=== PATIENT | female | born 1955 | race Hispanic/Latino ===

== ENCOUNTER 2018-04-20 13:42 | Emergency (ER) | payer BC ==
--- NOTE | 2018-04-20 14:40 | RAD REPORT ---
EXAM DESCRIPTION: Akash Single View04/20/2018 2:32 pm CLINICAL HISTORY: Cough COMPARISON: none FINDINGS: The lungs appear clear of acute infiltrate. The heart is normal size IMPRESSION: No acute abnormalities displayed
[2018-04-20 14:52] LABS: Absolute Lymphocytes (CBC) 0.7 K/uL (0.7-4.9); Absolute Neutrophil 9.5 K/uL (1.8-8.0); Basophils % 0.7 % (0-1.3); Eosinophils % 0.7 % (0-4.4); Hematocrit 38.6 % (36.0-45.0); Lymphocytes % 5.8 % (15.3-44.8); MCH 31.2 pg (27.0-35.0); MCV 90.6 fL (80-100); MPV 8.7 fL (7.6-11.3); Monocytes % 9.2 % (3.3-12.3); RBC Red Blood Cell Count 4.26 M/uL (3.86-4.86)
[2018-04-20 14:53] LABS: Protime INR 1.15
[2018-04-20 15:17] LABS: ALT/SGPT 29 U/L (12-78); AST/SGOT 24 U/L (15-37); Alkaline Phosphatase 53 U/L (45-117); BUN Blood Urea Nitrogen 13 mg/dL (7-18); Bicarbonate 27 mmol/L (21-32); Bilirubin Direct 0.2 mg/dL (0-0.2); Bilirubin Total 0.5 mg/dL (0.2-1.0); Glucose Level 100 mg/dL (74-106); NT PRO-BNP 171 pg/mL (<125); Potassium 3.7 mmol/L (3.5-5.1); Protein, Total 7.2 g/dL (6.4-8.2); Sodium Level 141 mmol/L (136-145); Troponin (Emerg Dept Use Only) < 0.02 ng/mL (0.0-0.045)
[2018-04-20] MEDS ORDERED: HYDROCODONE/CHLORPHEN 5 ML/OSYR ONE (15:20)
[2018-04-20] MEDS ORDERED: ALBUTEROL 2.5 MG/3 ML NEB SOL ONE (15:20)
[2018-04-20] MEDS ORDERED: IPRATROPIUM BROM 0.5MG/2.5ML ONE (15:20)
[2018-04-20] MEDS ORDERED: FAMOTIDINE 20 MG TAB ONE (15:21)
[2018-04-20] MEDS ORDERED: CEFTRIAXONE/SWI 1gm 1 GM/10 ML SYR ONE (15:21)
[2018-04-20] MEDS ORDERED: predniSONE 20 MG TAB ONE (15:21)
--- NOTE | 2018-04-20 16:11 | ER ---
Nurse's Notes [facility] Name: Merry Henderson Age: 63 yrs Sex: Female : 1955 Arrival Date: 04/20/2018 Time: 13:43 Bed 18 Private MD: Diagnosis: Bronchitis, not specified as acute or chronic;Acute sinusitis Presentation: 04/20 13:58 Presenting complaint: Patient states: coughing since yesterday with mid substernal em pain, with "dark green stuff," with sinus drainage, denies fever. Transition of care: patient was not received from another setting of care. Onset of symptoms was April 19, 2018. Risk Assessment: Do you want to hurt yourself or someone else? Patient reports no desire to harm self or others. Initial Sepsis Screen: Does the patient meet any 2 criteria? No. Patient's initial sepsis screen is negative. Does the patient have a suspected source of infection? No. Patient's initial sepsis screen is negative. Care prior to arrival: None. 13:58 Method Of Arrival: Ambulatory em 13:58 Acuity: KRYSTYNA 3 ss Triage Assessment: 14:02 General: Appears in no apparent distress. comfortable, Behavior is calm, cooperative. em Pain: Complains of pain in mid-sternal area. Cardiovascular: Reports chest pain, Denies shortness of breath, Capillary refill < 3 seconds Patient's skin is warm and dry. Respiratory: Airway is patent Respiratory effort is even, unlabored, Respiratory pattern is regular, symmetrical, Breath sounds are clear bilaterally. Historical: - Allergies: 14:02 No Known Allergies; em - PMHx: 14:02 Hyperlipidemia; em - PSHx: 14:02 ; em - Immunization history:: Adult Immunizations up to date. - Social history:: Smoking status: Patient/guardian denies using tobacco. - Ebola Screening: : Patient negative for fever greater than or equal to 101.5 degrees Fahrenheit, and additional compatible Ebola Virus Disease symptoms Patient denies exposure to infectious person Patient denies travel to an Ebola-affected area in the 21 days before illness onset No symptoms or risks identified at this time. Screenin:05 Abuse screen: Denies threats or abuse. Nutritional screening: No deficits noted. em Tuberculosis screening: No symptoms or risk factors identified. Fall Risk None identified. Assessment: 14:05 General: Appears in no apparent distress. comfortable, Behavior is calm, cooperative. em Pain: Complains of pain in mid-sternal area Pain does not radiate. Pain began 1 day ago. Neuro: Level of Consciousness is awake, alert, obeys commands, Oriented to person, place, time, situation. Cardiovascular: Capillary refill < 3 seconds Patient's skin is warm and dry. Respiratory: Reports cough that is productive, pain with cough pain with movement Airway is patent Respiratory effort is even, unlabored, Respiratory pattern is regular, symmetrical, Sputum is green Breath sounds are clear bilaterally. Onset: The symptoms/episode began/occurred yesterday. GI: No signs and/or symptoms were reported involving the gastrointestinal system. : No signs and/or symptoms were reported regarding the genitourinary system. EENT: EENT: c/o right ear pain, heard "a pop". Derm: Skin is intact, Skin is pink, warm \\T\\ dry. Musculoskeletal: Range of motion: intact in all extremities. 14:15 Reassessment: The previous assessment is accurate, call light remains within reach. ss 15:15 Reassessment: Patient appears in no apparent distress at this time. Patient and/or em family updated on plan of care and expected duration. Pain level reassessed. Patient is alert, oriented x 3, equal unlabored respirations, skin warm/dry/pink. 16:24 Reassessment: Patient appears in no apparent distress at this time. Patient and/or em family updated on plan of care and expected duration. Pain level reassessed. Patient is alert, oriented x 3, equal unlabored respirations, skin warm/dry/pink. rates pain 7/10 Patient states feeling better. Patient states symptoms have improved. Vital Signs: 14:02 BP 150 / 78; Pulse 84; Resp 18; Pulse Ox 95% on R/A; Weight 78.02 kg; Height 5 ft. 3 em in. (160.02 cm); Pain 9/10; 14:05 Temp 99.1(O); em 15:00 BP 138 / 71; Pulse 80; Resp 18; Pulse Ox 99% on R/A; em 16:02 BP 164 / 74; Pulse 97; Resp 18; Pulse Ox 98% on R/A; em 16:44 BP 146 / 67; Pulse 101; Resp 19; Pulse Ox 97% on R/A; Pain 7/10; em 14:02 Body Mass Index 30.47 (78.02 kg, 160.02 cm) em ED Course: 13:43 Patient arrived in ED. tw3 13:55 Kate Vazquez FNP-C [facility]. snw 13:55 Shahzad Gutierres MD is Attending Physician. snw 13:58 Robert Hodge LVN is Primary Nurse. em 14:02 Arm band placed on. em 14:03 EKG done, by seed technician. reviewed by Shahzad Gutierres MD. at1 14:03 Patient maintains SpO2 saturation greater than 95% on room air. em 14:03 Patient has correct armband on for positive identification. Pulse ox on. NIBP on. em 14:28 X-ray completed. Portable x-ray completed in exam room. Patient tolerated procedure ag1 well. 14:30 XRAY Chest (1 view) In Process Unspecified. EDMS 14:31 Triage completed. ss 14:40 Initial lab(s) drawn, by me, sent to lab. Inserted saline lock: 20 gauge in left em1 antecubital area, using aseptic technique. Blood collected. 16:21 No provider procedures requiring assistance completed. IV discontinued, intact, em bleeding controlled, No redness/swelling at site. Pressure dressing applied. Administered Medications: 15:02 CANCELLED (route change): Rocephin (cefTRIAXone) 1 grams IM once snw 15:20 Drug: Albuterol - atroVENT (3:1) (2.5 mg - 0.5 mg) 3 ml Route: Nebulizer; em 16:17 Follow up: Response: No adverse reaction; Marked relief of symptoms em 15:20 Drug: Tussionex Pennkinetic ER 5 ml Route: PO; em 16:17 Follow up: Response: No adverse reaction; Pain is decreased em 15:20 Drug: predniSONE 40 mg Route: PO; em 16:17 Follow up: Response: No adverse reaction em 15:20 Drug: Pepcid 20 mg Route: PO; em 16:17 Follow up: Response: No adverse reaction em 15:28 Drug: Rocephin 1 grams Route: IV; Rate: calculated rate; Site: left antecubital; ss 16:16 Follow up: Response: No adverse reaction; IV Status: Completed infusion; IV Intake: 10mlem Intake: 16:16 IV: 10ml; Total: 10ml. em Outcome: 16:10 Discharge ordered by . snw 16:44 Discharged to home ambulatory, with family. em 16:44 Condition: good 16:44 Discharge instructions given to patient, Instructed on discharge instructions, follow up and referral plans. medication usage, Demonstrated understanding of instructions, follow-up care, medications, Prescriptions given X 3. 16:46 Patient left the ED. em Signatures: Dispatcher [employer] EDMS Kate Vazquez, FACTORY HELPER-C FACTORY HELPER-Csnw Robert Hodge, THEATRE DIRECTOR THEATRE DIRECTOR em Haris Hunter em1 Donna Murillo, MIKE RN ss Shae Jj, towing pilot EKG Tat1 Avani Celeste ag1 Johanna Manning tw3
--- NOTE | 2018-04-20 16:11 | EDPHYS ---
Physician Documentation [facility] Name: Merry Henderson Age: 63 yrs Sex: Female : 1955 Arrival Date: 04/20/2018 Time: 13:43 Bed 18 Private MD: ED Physician Shahzad Gutierres HPI: 04/20 15:44 This 63 yrs old Female presents to ER via Ambulatory with complaints of Chest snw Pain. 15:44 Onset: The symptoms/episode began/occurred gradually, 4 day(s) ago, and became snw persistent. Associated signs and symptoms: Pertinent positives: cough, earache, shortness of breath, sore throat. Modifying factors: The patient symptoms are alleviated by nothing. It is unknown whether or not the patient has had similar symptoms in the past. It is unknown whether or not the patient has recently seen a physician. Historical: - Allergies: 14:02 No Known Allergies; em - PMHx: 14:02 Hyperlipidemia; em - PSHx: 14:02 ; em - Immunization history:: Adult Immunizations up to date. - Social history:: Smoking status: Patient/guardian denies using tobacco. - Ebola Screening: : Patient negative for fever greater than or equal to 101.5 degrees Fahrenheit, and additional compatible Ebola Virus Disease symptoms Patient denies exposure to infectious person Patient denies travel to an Ebola-affected area in the 21 days before illness onset No symptoms or risks identified at this time. ROS: 15:41 Eyes: Negative for injury, pain, redness, and discharge. snw 15:41 Neck: Negative for injury, pain, and swelling, Cardiovascular: Negative for chest pain, palpitations, and edema, Abdomen/GI: Negative for abdominal pain, nausea, vomiting, diarrhea, and constipation, Back: Negative for injury and pain, : Negative for injury, bleeding, discharge, and swelling, MS/Extremity: Negative for injury and deformity, Skin: Negative for injury, rash, and discoloration, Neuro: Negative for headache, weakness, numbness, tingling, and seizure. 15:41 Constitutional: Positive for malaise. 15:41 ENT: Positive for nasal discharge, sinus congestion, sinus pain. 15:41 Respiratory: Positive for cough. Exam: 15:41 Constitutional: This is a well developed, well nourished patient who is awake, alert, snw and in no acute distress. Eyes: Pupils equal round and reactive to light, extra-ocular motions intact. Lids and lashes normal. Conjunctiva and sclera are non-icteric and not injected. Cornea within normal limits. Periorbital areas with no swelling, redness, or edema. Neck: Trachea midline, no thyromegaly or masses palpated, and no cervical lymphadenopathy. Supple, full range of motion without nuchal rigidity, or vertebral point tenderness. No Meningismus. Chest/axilla: Normal chest wall appearance and motion. Nontender with no deformity. No lesions are appreciated. Cardiovascular: Regular rate and rhythm with a normal S1 and S2. No gallops, murmurs, or rubs. Normal PMI, no JVD. No pulse deficits. Respiratory: Lungs have equal breath sounds bilaterally, clear to auscultation and percussion. No rales, rhonchi or wheezes noted. No increased work of breathing, no retractions or nasal flaring. Abdomen/GI: Soft, non-tender, with normal bowel sounds. No distension or tympany. No guarding or rebound. No evidence of tenderness throughout. Back: No spinal tenderness. No costovertebral tenderness. Full range of motion. Skin: Warm, dry with normal turgor. Normal color with no rashes, no lesions, and no evidence of cellulitis. MS/ Extremity: Pulses equal, no cyanosis. Neurovascular intact. Full, normal range of motion. Neuro: Awake and alert, GCS 15, oriented to person, place, time, and situation. Cranial nerves II-XII grossly intact. Motor strength 5/5 in all extremities. Sensory grossly intact. Cerebellar exam normal. Normal gait. Psych: Awake, alert, with orientation to person, place and time. Behavior, mood, and affect are within normal limits. 15:41 Head/face: Noted is swelling, that is mild, of the nose, Sinus tenderness, that is moderate, is located over the right frontal sinus, left frontal sinus, right ethmoid sinus and left ethmoid sinus. 15:41 ENT: TM's: are normal, Nose: Nasal mucosa: edematous, Mouth: is normal, Posterior pharynx: erythema, that is moderate, Voice: is normal. Vital Signs: 14:02 BP 150 / 78; Pulse 84; Resp 18; Pulse Ox 95% on R/A; Weight 78.02 kg; Height 5 ft. 3 em in. (160.02 cm); Pain 9/10; 14:05 Temp 99.1(O); em 15:00 BP 138 / 71; Pulse 80; Resp 18; Pulse Ox 99% on R/A; em 16:02 BP 164 / 74; Pulse 97; Resp 18; Pulse Ox 98% on R/A; em 16:44 BP 146 / 67; Pulse 101; Resp 19; Pulse Ox 97% on R/A; Pain 7/10; em 14:02 Body Mass Index 30.47 (78.02 kg, 160.02 cm) em MDM: 13:57 Patient medically screened. snw 16:11 Data reviewed: vital signs, nurses notes. Data interpreted: Pulse oximetry: on room air snw is 98 %. Interpretation: normal. Counseling: I had a detailed discussion with the patient and/or guardian regarding: the historical points, exam findings, and any diagnostic results supporting the discharge/admit diagnosis, the presence of at least one elevated blood pressure reading (>120/80) during this emergency department visit, lab results, radiology results, the need for outpatient follow up, to return to the emergency department if symptoms worsen or persist or if there are any questions or concerns that arise at home. Special discussion: I have referred the patient to see his PCP for further evaluation of high blood pressure. Based on the history and exam findings, there is no indication for further emergent testing or inpatient evaluation. I discussed with the patient/guardian the need to see the primary care provider for further evaluation of the symptoms. 04/20 13:55 Order name: Basic Metabolic Panel; Complete Time: 15:23 snw 04/20 13:55 Order name: CBC with Diff; Complete Time: 15:01 snw 04/20 13:55 Order name: LFT's; Complete Time: 15:23 snw 04/20 13:55 Order name: Magnesium; Complete Time: 15:23 snw 04/20 13:55 Order name: NT PRO-BNP; Complete Time: 15:23 snw 04/20 13:55 Order name: PT-INR; Complete Time: 15:01 snw 04/20 13:55 Order name: Troponin (emerg Dept Use Only); Complete Time: 15:23 snw 04/20 13:55 Order name: XRAY Chest (1 view); Complete Time: 14:49 snw 04/20 13:55 Order name: EKG; Complete Time: 13:56 snw 04/20 13:55 Order name: Cardiac monitoring; Complete Time: 14:40 snw 04/20 13:55 Order name: EKG - Nurse/Tech; Complete Time: 14:40 snw 04/20 13:55 Order name: IV Saline Lock; Complete Time: 14:40 snw 04/20 13:55 Order name: Labs collected and sent; Complete Time: 14:40 snw 04/20 13:55 Order name: O2 Per Protocol; Complete Time: 14:40 snw 04/20 13:55 Order name: O2 Sat Monitoring; Complete Time: 14:40 snw Administered Medications: 15:02 CANCELLED (route change): Rocephin (cefTRIAXone) 1 grams IM once snw 15:20 Drug: Albuterol - atroVENT (3:1) (2.5 mg - 0.5 mg) 3 ml Route: Nebulizer; em 16:17 Follow up: Response: No adverse reaction; Marked relief of symptoms em 15:20 Drug: Tussionex Pennkinetic ER 5 ml Route: PO; em 16:17 Follow up: Response: No adverse reaction; Pain is decreased em 15:20 Drug: predniSONE 40 mg Route: PO; em 16:17 Follow up: Response: No adverse reaction em 15:20 Drug: Pepcid 20 mg Route: PO; em 16:17 Follow up: Response: No adverse reaction em 15:28 Drug: Rocephin 1 grams Route: IV; Rate: calculated rate; Site: left antecubital; ss 16:16 Follow up: Response: No adverse reaction; IV Status: Completed infusion; IV Intake: 10mlem Disposition: 04/21 06:04 Co-signature as Attending Physician, Shahzad Gutierres MD I agree with the assessment and kdr plan of care. Disposition: 04/20/18 16:10 Discharged to Home. Impression: Bronchitis, not specified as acute or chronic, Acute sinusitis. - Condition is Stable. - Discharge Instructions: Acute Bronchitis, Adult, Hypertension, Sinusitis, Adult. - Prescriptions for Amoxicillin 500 mg Oral Capsule - take 1 capsule by ORAL route every 8 hours for 10 days; 30 tablet. Tessalon Perles 100 mg Oral Capsule - take 1 capsule by ORAL route every 8 hours As needed; 15 capsule. Prednisone 20 mg Oral Tablet - take 2 tablet by ORAL route once daily for 5 days; 10 tablet. - Medication Reconciliation Form, Thank You Letter, Antibiotic Education, Prescription Opioid Use form. - Follow up: Private Physician; When: 2 - 3 days; Reason: Recheck today's complaints, Continuance of care, Re-evaluation by your physician. Follow up: Emergency Department; When: As needed; Reason: Worsening of condition. Signatures: Dispatcher [employer] EDMS Shahzad Gutierres MD MD kdr Kate Vazquez, PROFESSOR OF EARLY CHILDHOOD EDUCATION-C PROFESSOR OF EARLY CHILDHOOD EDUCATION-Csnw Robert Hodge, SIGN OUT CLERK SIGN OUT CLERK em Donna Murillo RN RN ss Corrections: (The following items were deleted from the chart) 04/20 15:02 14:50 Rocephin (cefTRIAXone) 1 grams IM once ordered. snw snw 15:02 15:02 Rocephin (cefTRIAXone) 1 grams IM once ordered. snw snw 16:46 16:10 04/20/2018 16:10 Discharged to Home. Impression: Bronchitis, not specified as em acute or chronic; Acute sinusitis. Condition is Stable. Forms are Medication Reconciliation Form, Thank You Letter, Antibiotic Education, Prescription Opioid Use. Follow up: Private Physician; When: 2 - 3 days; Reason: Recheck today's complaints, Continuance of care, Re-evaluation by your physician. Follow up: Emergency Department; When: As needed; Reason: Worsening of condition. snw
--- NOTE | 2018-04-21 04:18 | EKG ---
Test Date: 2018-04-20 Test Time: 13:54:34 Pulp Press Tender: BOBBY/M MEASUREMENT RESULTS: Intervals: Rate: 83 RI: 130 QRSD: 78 QT: 350 QTc: 411 [place]: P: 15 RI: 130 QRS: 11 T: -6 INTERPRETIVE STATEMENTS: Normal sinus rhythm Normal ECG Compared to ECG 03/24/2006 10:22:09 Sinus bradycardia no longer present Electronically Signed On 04-21-18 04:17:13 CDT by Zan Rosario
== END 2018-04-20 16:46 | disposition home or self-care (01) ==
LOC: ER 13:42
DX: J40 Bronchitis, not specified as acute or chronic (principal); J01.90 Acute sinusitis, unspecified
CPT/HCPCS: 36415; 71045; 80048; 80076; 83735; 83880; 84484; 85025; 85610; 93005; 94640; 96365; 99285; J0696; J7512

== ENCOUNTER 2022-05-02 08:29 | Emergency (ER) | payer OTHER ==
--- OUTSIDE RECORDS SUMMARY | 2022-05-02 08:34 | XMS REPORT | Continuity of Care Document ---
:1955 Author Organization [facility] t Address [address] [place] [address] Care Team Providers Name Role Phone PCP, PATIENT DOES NOT HAVE A Primary Care Physician UnavailELISABETH Romero Attending Clinician Unavailable Elisabeth Paez Attending Clinician Doctor Unassigned, [place] Attending Clinician Unavailable DWIGHT SINGH Attending Clinician Unavailable Dwight Singh MD Attending Clinician AMANDA ROGERS Attending Clinician Unavailable Amanda Rose Attending Clinician RAMIN SPEAR Attending Clinician Unavailable Ramin Phipps Attending Clinician Mayank Phan RN Attending Clinician Unavailable THEODORE REEDER Attending Clinician Unavailable Ramses Kellogg DO Attending Clinician Theodore Reeder DO Attending Clinician SHAHRZAD NEWMAN Attending Clinician Unavailable Jacy Kumar DO Attending Clinician RAMIN SPEAR Admitting Clinician Unavailable THEODORE REEDER Admitting Clinician Unavailable Theodore Reeder DO Admitting Clinician ELISABETH LUJAN Admitting Clinician Unavailable Payers Payer Name Policy Type Policy Number Effective Date Expiration Date [facility] [id number] 2020 [facility] 00:00:00 PPO Problems Condition Condition Condition Status Onset Resolution Last Treating Co mments Source Name Details Category Date Date Treatment Clinician Date Sepsis Sepsis Disease Active Univers 4-21 ity of 00:00: [place] 00 Medical Branch Severe Severe Disease Active Univers sepsis sepsis 4-20 [place]y [place] 00 Medical dysfunctio dysfunctio Br anch n due to n due to Gram Gram negative negative bacteria bacteria UTI UTI Disease Active Univers (urinary (urinary 4-20 ity of tract tract 00:00: [place] infection) infection) 00 In dical Branch E coli E coli Disease Active Univers bacteremia bacteremia 4-20 it y of 00:00: [place] 00 [facility] Branch COVID-19 COVID-19 Disease Active Unive rs 4-20 ity of 00:00: [address] Allergies, Adverse Reactions, Alerts Allergy Allergy Status Severity Reaction(s) Onset Inactive Treating Comm ents Source Name Type Date Date Clinician NO KNOWN Drug Active Univers ALLERGIE Class ity of S [facility] Social History Social Habit Start Date Stop Date Quantity Comments Source Exposure to 2022-03-02 2022-03-12 Not sure [facility] [place] [facility]-CoV-2 00:00:00 15:07:00 [facility] (event) [place] Alcohol intake 2022-03-12 2022-03-12 Ex-drinker [facility] 00:00:00 00:00:00 (finding) [facility] Tobacco use and 2020-10-20 2020-10-20 Smokeless tobacco Un iversity of exposure 00:00:00 00:00:00 non-user [facility] Sex Ass[birth year] Universit y of 00:00:00 00:00:00 [facility] Smoking Status Start Date Stop Date Source Never smoked tobacco [facility] Medications Ordered Filled Start Stop Current Ordering Indication Dosage Frequency Signature Comments Components Source Medication Medication Date Date Medication? Clinician (SIG) Name Name madisyn Yes [id number] 3{tbl} Take 3 Univers r-ritonavir 9-10 tablets by it y of (PAXLOVID, 00:00: mouth in [place] as EUA,) 300 00 the Medical mg (150 mg morning Branch x 2)-100 mg and 3 tablet tablets in the evening. benzonatate Yes [id number] 100mg Take 1 Univers 100 mg 9-10 capsule by ity of capsule 00:00: mouth 3 [place] 00 (three) Medical times Branch daily as needed for Cough. guaifenesin Yes Take by Uni vers /phenylephr 4-23 mouth. ity of ine HCl 12:39: [place] (MUCINEX 58 Medical COLD ORAL) Branch promethazin Yes Univer s e HCl 4-23 ity of (PROMETHAZI 12:39: [place] NE, BULK, 58 Medical MISC) Branch guaifenesin Yes Take by Uni vers /phenylephr 4-23 mouth. ity of ine HCl 12:39: [place] (MUCINEX 58 Medical COLD ORAL) Branch promethazin Yes Univer s e HCl 4-23 ity of (PROMETHAZI 12:39: [place] NE, BULK, 58 Medical MISC) Branch guaifenesin Yes Take by Uni vers /phenylephr 4-23 mouth. ity of ine HCl 12:39: [place] (MUCINEX 58 Medical COLD ORAL) Branch promethazin Yes Univer s e HCl 4-23 ity of (PROMETHAZI 12:39: [place] NE, BULK, 58 Medical MISC) Branch guaifenesin Yes Take by Uni vers /phenylephr 4-23 mouth. ity of ine HCl 12:39: [place] (MUCINEX 58 Medical COLD ORAL) Branch promethazin Yes Univer s e HCl 4-23 ity of (PROMETHAZI 12:39: [place] NE, BULK, 58 Medical MISC) Branch ondansetron Yes [id number] 4mg Take 1 Univers 4 mg tablet 4-23 tablet by ity of 00:00: mouth [place] 00 every 8 Medical (eight) Branch hours as needed for N/V unresponsi ve to Promethazi ne. sulfamethox Yes [id number] 1{tbl} Take 1 Univers azole-trime 4-23 tablet by ity of thoprim 00:00: mouth 2 [place] 800-160 mg 00 (two) Medical per tablet times Branch daily. ondansetron Yes [id number] 4mg Take 1 Univers 4 mg tablet 4-23 tablet by ity of 00:00: mouth [place] 00 every 8 Medical (eight) Branch hours as needed for N/V unresponsi ve to Promethazi ne. sulfamethox 2020-0 Yes [id number] 1{tbl} Take 1 Univers azole-trime 4-23 tablet by ity of thoprim 00:00: mouth 2 [place] 800-160 mg 00 (two) Medical per tablet times Branch daily. ondansetron 2020-0 Yes [id number] 4mg Take 1 Univers 4 mg tablet 4-23 tablet by ity of 00:00: mouth [place] 00 every 8 Medical (eight) Branch hours as needed for N/V unresponsi ve to Promethazi ne. sulfamethox 2020-0 Yes [id number] 1{tbl} Take 1 Univers azole-trime 4-23 tablet by ity of thoprim 00:00: mouth 2 [place] 800-160 mg 00 (two) Medical per tablet times Branch daily. ondansetron 2020-0 Yes [id number] 4mg Take 1 Univers 4 mg tablet 4-23 tablet by ity of 00:00: mouth [place] 00 every 8 Medical (eight) Branch hours as needed for N/V unresponsi ve to Promethazi ne. sulfamethox 2020-0 Yes [id number] 1{tbl} Take 1 Univers azole-trime 4-23 tablet by ity of thoprim 00:00: mouth 2 [place] 800-160 mg 00 (two) Medical per tablet times Branch daily. traMADoL 50 2020-0 Yes [id number] 50mg Take 1 Univ ers mg tablet 1-20 tablet by ity o f 00:00: mouth [place] 00 every 6 Medical (six) Branch hours as needed for Pain (scale 7-10). Indication s: acute pain traMADoL 50 2020-0 Yes [id number] 50mg Take 1 Univ ers mg tablet 1-20 tablet by ity o f 00:00: mouth [place] 00 every 6 Medical (six) Branch hours as needed for Pain (scale 7-10). Indication s: acute pain traMADoL 50 2020-0 Yes [id number] 50mg Take 1 Univ ers mg tablet 1-20 tablet by ity o f 00:00: mouth [place] 00 every 6 Medical (six) Branch hours as needed for Pain (scale 7-10). Indication s: acute pain traMADoL 50 2020-0 Yes [id number] 50mg Take 1 Univ ers mg tablet 1-20 tablet by ity o f 00:00: mouth [place] [id number] every 6 Medical (six) Branch hours as needed for Pain (scale 7-10). Indication s: acute pain Immunizations Ordered Filled Immunization Date Status Comments [facility] e Immunization Name Name SARS-COV-2 COVID-19 2020-08-28 Completed Unive rsity of PFIZER VACCINE 00:00:00 [facility] SARS-COV-2 COVID-19 2020-08-28 Completed Unive rsity of PFIZER VACCINE 00:00:00 [facility] SARS-COV-2 COVID-19 2020-08-28 Completed Unive rsity of PFIZER VACCINE 00:00:00 [facility] SARS-COV-2 COVID-19 2020-08-28 Completed Unive rsity of PFIZER VACCINE 00:00:00 [facility] SARS-COV-2 COVID-19 2020-07-31 Completed Unive rsity of PFIZER VACCINE 00:00:00 [facility] SARS-COV-2 COVID-19 2020-07-31 Completed Unive rsity of PFIZER VACCINE 00:00:00 [facility] SARS-COV-2 COVID-19 2020-07-31 Completed Unive rsity of PFIZER VACCINE 00:00:00 [facility] SARS-COV-2 COVID-19 2020-07-31 Completed Unive rsity of PFIZER VACCINE 00:00:00 [facility] Vital Signs Vital Name Observation Time Observation Value Comments Source Systolic blood 2022-03-12 20:09:00 147 mm[Hg] Univer sity of pressure [facility] Diastolic blood 2022-03-12 20:09:00 81 mm[Hg] Unive rsity of pressure [facility] Heart rate 2022-03-12 20:09:00 70 /min [facility] Body temperature 2022-03-12 20:09:00 37.33 [place] Univ ersity [facility] Respiratory rate 2022-03-12 20:09:00 18 /min Univ ersity of [facility] Body height 2022-03-12 20:09:00 160 cm [facility] Body weight 2022-03-12 20:09:00 82.101 kg [facility] Branch BMI 2022-03-12 20:09:00 32.06 kg/m2 Universi [facility] Oxygen saturation in 2022-03-12 20:09:00 97 /min University of Arterial blood by [facility] Pulse oximetry Branch Systolic blood 2021-07-22 15:22:00 138 mm[Hg] Univer sity of pressure [facility] Diastolic blood 2021-07-22 15:22:00 68 mm[Hg] Unive rsity of pressure [facility] Heart rate 2021-07-22 15:22:00 52 /min Universi [facility] Body height 2021-07-22 15:22:00 160 [facility] 2021-07-22 15:22:00 83.462 [facility] BMI 2021-07-22 15:22:00 32.59 kg/m2 Universi [facility] Oxygen saturation in 2021-07-22 15:22:00 98 /min University of Arterial blood by [facility] Pulse oximetry Branch Procedures Procedure Date / Time Performed Performing Clinician Courtney e COVID-19 (ID NOW 2022-03-12 20:12:00 Karmen Cavanaugh [facility] RAPID TESTING) Medical Branch CONSENT/REFUSAL FOR 2022-03-12 19:59:50 Doctor Unassigned, [facility] AND Name Medical Branch TREATMENT EXTERNAL PROVIDER 2021-08-13 06:01:00 Doctor Unassigned, No Univ [facility] RECORDS Name Medical Branch Encounters Start End Encounter Admission Attending Care Care Encounter Source Date/Time Date/Time Type Type Clinicians Facility Department ID 2021-05-[address] [facility] [id number] Univers 07:03:56 ity [facility] 2022-03-12 2022-03-12 Emergency X LE GAINNA ERT [id number] Univers 15:13:00 16:01:00 ELISABETH hopkins [facility] 2022-03-12 2022-03-12 Emergency Le GAINNA [id number] Univers 15:13:00 16:01:00 Elisabeth THOMAS [id number] i [place] [id number] [place] [facility] [phone] [facility] 084 [place] 2021-08-13 2021-08-13 Orders Doctor CALISTA [id number] Univers 00:00:00 00:00:00 Only Unassigned, VANITA [id number] ity of [place] [facility] [id number] [place] [id number] [facility] 009 [place] 2021-07-22 2021-07-22 [facility] [id number] Univers 09:15:00 09:31:03 DWIGHT [facility] 2021-07-22 2021-07-22 [facility] [id number] Univers 09:15:00 09:31:03 Visit Dwight [facility] [id number] it y of [place] [id number] [place] MIKAELA?BLEA [id number] In steven [address] MEDICAL OFFICE [facility] 2021-07-22 2021-07-22 Outpatient [facility] [id number] Univers 09:15:00 09:31:03 DWIGHT [facility] 2021-07-01 2021-07-01 [facility] [id number] Univers 08:30:00 11:02:16 AMANDA [facility] 2021-07-01 2021-07-01 [facility] [id number] Univers 08:30:00 11:02:16 [facility] [id number] it y of [place] [id number] [place] MIKAELA?BLEA [id number] In steven SCHAEFERCYNDIE [address] [place] [address] MEDICAL OFFICE [facility] 2021-07-01 2021-07-01 Outpatient [facility] [id number] Univers 08:30:00 08:30:00 AMANDA [facility] 2021-06-22 2021-06-22 Emergency X [facility] ERT [id number] Univers 16:05:00 18:34:00 RAMIN [facility] 2021-06-222021-06-22 Emergency [facility] [id number] Univers 16:05:00 18:34:00 Ramin THOMAS [id number] i ty of [id number] [place] [id number] [facility] 084 Branch 2021-06-22 2021-06-22 Emergency X [facility] ERT [id number] Univers 16:05:00 18:34:00 RAMIN ity of [facility] 2020-11-09 2020-11-09 Orders Doctor CALISTA [id number] Univers 00:00:00 00:00:00 Only Unassigned, VANITA [id number] ity of [place] [facility] [id number] [place] [id number] [facility] 009 Branch 2020-10-26 2020-10-26 Transition Andres Phan [id number] Univers 00:00:00 00:00:00 of Care Mayank Haywood [id number] ity of [place] [id number] [place] [id number] [facility] 403 Branch 2020-10-19 2020-10-23 [facility] [id number] Univers 19:53:00 12:39:00 THEODORE ity of [facility] 2020-10-19 2020-10-23 [facility] Ramses Kellogg [facility] [id number] Univers 19:53:00 12:39:[address] [facility] [id number] ity [id number] [place] [id number] [facility] 114 Branch (CLC) 2020-08-28 2020-08-[address] [facility] [id number] Univers 10:20:00 08:02:11 SHAHRZAD ity [facility] 2020-08-21 2020-08-[address] [facility] [id number] Univers 10:20:00 10:20:00 SHAHRZAD itcam [facility] [place] [facility] 2020-07-31 2020-07-[address] [facility] [id number] Univers 12:50:00 13:20:57 SHAHRZAD [facility] 2020-07-22 2020-07-22 [facility] [id number] Univers 17:47:00 20:34:00 [facility] 2020-07-22 2020-07-22 [facility] [id number] Univers 17:47:00 20:34:00 Elisabeth Thomas [id number] i ty [facility] [id number] [facility] [id number] [place] [address] Branch 2020-05-23 2020-05-23 Emergency [facility] [id number] Univers 12:04:00 14:13:00 Jacy Thomas [id number] ity [facility] [id number] [facility] [phone] [place] [address] Branch Results This patient has no known results.
--- NOTE | 2022-05-02 09:41 | RAD REPORT ---
EXAM DESCRIPTION: Akash Single View05/02/2022 9:36 am CLINICAL HISTORY: Chest pain COMPARISON: 2018 FINDINGS: The lungs appear clear of acute infiltrate. The heart is normal size IMPRESSION: No acute abnormalities displayed
--- NOTE | 2022-05-02 09:42 | RAD REPORT ---
EXAM DESCRIPTION: RAD - Forearm Left - 05/02/2022 9:36 am CLINICAL HISTORY: Left forearm pain status post injury FINDINGS: No fracture is seen
--- NOTE | 2022-05-02 09:43 | RAD REPORT ---
EXAM DESCRIPTION: RAD - Shoulder Right 2 View - 05/02/2022 9:36 am CLINICAL HISTORY: Right shoulder pain FINDINGS: No fracture or dislocation is seen.
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
[2022-05-02 10:36] VITALS: TEMP 97.9
[2022-05-02 10:37] VITALS: BP 134/74; O2SAT 98
== END 2022-05-02 10:28 | disposition home or self-care (01) ==
LOC: ER 08:29
DX: M25.511 Pain in right shoulder (principal); M25.532 Pain in left wrist; V49.40XA Driver injured in collision with unspecified motor vehicles in traffic accident, initial encounter
CPT/HCPCS: 71045; 99284

== ENCOUNTER 2022-09-08 09:58 | Emergency (ER) | payer OTHER ==
--- OUTSIDE RECORDS SUMMARY | 2022-09-08 10:03 | XMS REPORT | Continuity of Care Document ---
:1955 Author Organization [facility] t Address [address] [place] [address] Care Team Providers Name Role Phone NIKKI HEREDIA Primary Care Physician Unavailable CARMEN CARTAGENA Attending Clinician Unavailable Carmen Cartagena MD Attending Clinician ROBBIE KELLOGG Attending Clinician Unavailable Robbie Kellogg DO Attending Clinician ELISABETH LUJAN Attending Clinician Unavailable Elisabeth Paez Attending Clinician Doctor Unassigned, [place] Attending Clinician Unavailable DWIGHT SINGH Attending Clinician Unavailable Dwight Singh MD Attending Clinician Amanda Rose Attending Clinician AMANDA ROGERS Attending Clinician Unavailable RAMIN SPEAR Attending Clinician Unavailable Ramin Phipps Attending Clinician Mayank Phan RN Attending Clinician Unavailable THEODORE REEDER Attending Clinician Unavailable Theodore Reeder DO Attending Clinician SHAHRZAD NEWMAN Attending Clinician Unavailable Jacy Kumar DO Attending Clinician CARMEN CARTAGENA Admitting Clinician Unavailable ROBBIE KELLOGG Admitting Clinician Unavailable RAMIN SPEAR Admitting Clinician Unavailable THEODORE REEDER Admitting Clinician Unavailable Theodore Reeder DO Admitting Clinician ELISABETH LUJAN Admitting Clinician Unavailable Payers Payer Name Policy Type Policy Number Effective Date Expiration Date Bisi skelton [facility] [id number] 2020 [facility] 00:00:00 PPO Problems Condition Condition Condition Status Onset Resolution Last Treating Co mments Source Name Details Category Date Date Treatment Clinician Date Sepsis Sepsis Disease Active Univers 4-21 ity of 00:00: [place] 00 Medical Branch Severe Severe Disease Active Univers sepsis sepsis 4-20 [place]y [place] organ [place] 00 Medical dysfunctio dysfunctio Br anch n due to n due to Gram Gram negative negative bacteria bacteria UTI UTI Disease Active Univers (urinary (urinary 4-20 ity of tract tract 00:00: [place] infection) infection) 00 De dical Branch E coli E coli Disease Active Univers bacteremia bacteremia 4-20 it y of 00:00: [place] 00 Medical Branch COVID-19 COVID-19 Disease Active Unive rs 4-20 ity of 00:00: [place] 00 [facility] Allergies, Adverse Reactions, Alerts Allergy Allergy Status Severity Reaction(s) Onset Inactive Treating Comm ents Source Name Type Date Date Clinician NO KNOWN Drug Active Univers ALLERGIE Class ity of S [facility] Social History Social Habit Start Date Stop Date Quantity Comments Source Exposure to 2022-08-21 2022-08-31 Not sure [facility] SARS-CoV-2 00:00:00 19:23:00 [facility] (event) [place] Alcohol intake 2022-08-31 2022-08-31 Ex-drinker [facility] 00:00:00 00:00:00 (finding) [facility] Tobacco use and 2020-10-20 2020-10-20 Smokeless tobacco Un iversity of exposure 00:00:00 00:00:00 non-user [facility] Sex [birth year] Universit y of 00:00:00 00:00:00 [facility] Smoking Status Start Date Stop Date Source Never smoked tobacco [facility] Medications Ordered Filled Start Stop Current Ordering Indication Dosage Frequency Signature Comments Components Source Medication Medication Date Date Medication? Clinician (SIG) Name Name amoxicillin 2022- No 1{tbl} 1 tablet, Univers -clavulanat 09-01 Oral, ONCE i ty of e 04:15: 03:43 NOW, 1 [place] (AUGMENTIN) 00 :00 dose, On Medi servando 875-125 mg Mon08/31/22 Bra formerly [facility] per tablet at 2215, 1 tablet KIERA
Re ason for Anti-Infec tive: Documented Infection< br>Documen drew Infection Site: Abdominal< br>Duratio n of Therapy: Other (see Comments) NaCl 0.9% 0 Yes 1000mL at 999 Univ ers (NS) IV 3-02 mL/hr, ity of infusion 04:00: Intravenou [place] 1,000 mL 00 s, Medical CONTINUOUS Branch , Starting on Mon08/31/22 at 2200, Until Discontinu ed, Routine iopamidol 2022- No [id number] 84mL 84 mL, Univers (ISOVUE 09-01 Intravenou ity o f 370-500 mL) 04:00: 04:00 s, ONCE, 1 [place] injection 00 :00 dose, On Medica l 84 mL Mon08/31/22 Branch at 2200, Routine ketorolac 2022- No 15mg 15 mg, Unive rs (TORADOL) 09-01 Slow IV ity of injection 02:45: 01:54 Push, [place] 15 mg 00 :00 ONCE, 1 Medical dose, On Branch Mon08/31/22 at 2045, KIERA amoxicillin 2022-0 Yes [id number] 1{tbl} Take 1 Univers -clavulanat 3-01 tablet by ity of e 875-125 00:00: mouth [place] mg per 00 every 12 Medical tablet (twelve) Branch hours. traMADoL Yes [id number] 50mg Take 1 Univers (ULTRAM) 50 3-01 tablet by ity of mg tablet 00:00: mouth [place] 00 every 6 Medical (six) Branch hours as needed for Pain (scale 7-10). Indication s: acute pain ondansetron Yes [id number] 4mg Take 1 Univers (ZOFRAN) 4 3-01 tablet by ity of mg tablet 00:00: mouth [place] 00 every 8 Medical (eight) Branch hours as needed for Nausea and Vomiting (N/V). benzonatate 2021-07 Yes [id number] 100mg Take 1 Univers 100 mg 2-20 capsule by ity of capsule 00:00: mouth 3 [place] 00 (three) Medical times Branch daily as needed for Cough. benzonatate 2021-07 Yes [id number] 100mg Take 1 Univers 100 mg 2-20 capsule by ity of capsule 00:00: mouth 3 [place] 00 (three) Medical times Branch daily as needed for Cough. baloxavir 2021-07- Yes [id number] 1{tbl} Take 1 Univers marboxiL 2-20 12-21 tablet by ity o f (XOFLUZA) 00:00: 05:59 mouth once [place] 80 mg Tab 00 :00 now for 1 Medic al dose. Branch nirmatrelvi Yes [id number] 3{tbl} Take 3 Univers r-ritonavir 9-10 tablets by it y of (PAXLOVID, 00:00: mouth in [place] EUA,) 300 00 the Medical mg (150 mg morning Branch x 2)-100 mg and 3 tablet tablets in the evening. benzonatate Yes [id number] 100mg Take 1 Univers 100 mg 9-10 capsule by ity of capsule 00:00: mouth 3 [place] 00 (three) Medical times Branch daily as needed for Cough. nirmatrelvi Yes [id number] 3{tbl} Take 3 Univers r-ritonavir 9-10 tablets by it y of (PAXLOVID, 00:00: mouth in [place] EUA,) 300 00 the Medical mg (150 mg morning Branch x 2)-100 mg and 3 tablet tablets in the evening. nirmatrelvi Yes [id number] 3{tbl} Take 3 Univers r-ritonavir 9-10 tablets by it y of (PAXLOVID, 00:00: mouth in [place] EUA,) 300 00 the Medical mg (150 mg morning Branch x 2)-100 mg and 3 tablet tablets in the evening. benzonatate 2021- No [id number] 100mg Take 1 Univers 100 mg 9-10 12-20 capsule by ity of capsule 00:00: 00:00 mouth 3 [place] 00 :00 (three) Medical times Branch daily as needed for Cough. guaifenesin Yes Take by Uni vers /phenylephr 4-23 mouth. ity of ine HCl 12:39: [place] (MUCINEX 58 Medical COLD ORAL) Branch promethazin Yes Univer s e HCl 4-23 ity of (PROMETHAZI 12:39: [place] NE, BULK, 58 Medical MISC) Branch guaifenesin Yes Take by Uni vers /phenylephr 4-23 mouth. ity of ine HCl 12:39: [place] (MUCINEX 58 Medical COLD ORAL) Branch promethazin Yes Univer s e HCl 4-23 ity of (PROMETHAZI 12:39: [place] NE, BULK, 58 Medical MISC) Branch guaifenesin Yes Take by Uni vers /phenylephr 4-23 mouth. ity of ine HCl 12:39: [place] (MUCINEX 58 Medical COLD ORAL) Branch promethazin Yes Univer s e HCl 4-23 ity of (PROMETHAZI 12:39: [place] NE, BULK, 58 Medical MISC) Branch guaifenesin Yes Take by Uni vers /phenylephr 4-23 mouth. ity of ine HCl 12:39: [place] (MUCINEX 58 Medical COLD ORAL) Branch promethazin Yes Univer s e HCl 4-23 ity of (PROMETHAZI 12:39: [place] NE, BULK, 58 Medical MISC) Branch guaifenesin Yes Take by Uni vers /phenylephr 4-23 mouth. ity of ine HCl 12:39: [place] (MUCINEX 58 Medical COLD ORAL) Branch promethazin Yes Univer s e HCl 4-23 ity of (PROMETHAZI 12:39: [place] NE, BULK, 58 Medical MISC) Branch guaifenesin Yes Take by Uni vers /phenylephr 4-23 mouth. ity of ine HCl 12:39: [place] (MUCINEX 58 Medical COLD ORAL) Branch promethazin Yes Univer s e HCl 4-23 ity of (PROMETHAZI 12:39: [place] NE, BULK, 58 Medical MISC) Branch sulfamethox Yes [id number] 1{tbl} Take 1 Univers azole-trime 4-23 tablet by ity of thoprim 00:00: mouth 2 [place] 800-160 mg 00 (two) Medical per tablet times Branch daily. ondansetron 2021-0 Yes [id number] 4mg Take 1 Univers 4 mg tablet 4-23 tablet by ity of 00:00: mouth [place] 00 every 8 Medical (eight) Branch hours as needed for N/V unresponsi ve to Promethazi ne. sulfamethox 2021-0 Yes [id number] 1{tbl} Take 1 Univers azole-trime 4-23 tablet by ity of thoprim 00:00: mouth 2 [place] 800-160 mg 00 (two) Medical per tablet times Branch daily. ondansetron 1-0 Yes [id number] 4mg Take 1 Univers 4 mg tablet 4-23 tablet by ity of 00:00: mouth [place] 00 every 8 Medical (eight) Branch hours as needed for N/V unresponsi ve to Promethazi ne. sulfamethox 1-0 Yes [id number] 1{tbl} Take 1 Univers azole-trime 4-23 tablet by ity of thoprim 00:00: mouth 2 [place] 800-160 mg 00 (two) Medical per tablet times Branch daily. ondansetron 2020-0 Yes [id number] 4mg Take 1 Univers 4 mg tablet 4-23 tablet by ity of 00:00: mouth [place] 00 every 8 Medical (eight) Branch hours as needed for N/V unresponsi ve to Promethazi ne. sulfamethox 1-0 Yes [id number] 1{tbl} Take 1 Univers azole-trime 4-23 tablet by ity of thoprim 00:00: mouth 2 [place] 800-160 mg 00 (two) Medical per tablet times Branch daily. ondansetron 2021-0 Yes [id number] 4mg Take 1 Univers 4 mg tablet 4-23 tablet by ity of 00:00: mouth [place] 00 every 8 Medical (eight) Branch hours as needed for N/V unresponsi ve to Promethazi ne. sulfamethox 2021-0 Yes [id number] 1{tbl} Take 1 Univers azole-trime 4-23 tablet by ity of thoprim 00:00: mouth 2 [place] 800-160 mg 00 (two) Medical per tablet times Branch daily. ondansetron Yes [id number] 4mg Take 1 Univers 4 mg tablet 4-23 tablet by ity of 00:00: mouth [place] 00 every 8 Medical (eight) Branch hours as needed for N/V unresponsi ve to Promethazi ne. sulfamethox Yes [id number] 1{tbl} Take 1 Univers azole-trime 4-23 tablet by ity of oprim 00:00: mouth 2 [place] 800-160 mg 00 (two) Medical per tablet times Branch daily. ondansetron Yes [id number] 4mg Take 1 Univers 4 mg tablet 4-23 tablet by ity of 00:00: mouth [place] 00 every 8 Medical (eight) Branch hours as needed for N/V unresponsi ve to Promethazi ne. traMADoL 50 0 Yes [id number] 50mg Take 1 Univ ers [...] Immunizations Ordered Filled Immunization Date Status Comments [facility] e Immunization Name Name SARS-COV-2 COVID-19 2020-08-28 Completed Unive rsity of PFIZER VACCINE 00:00:00 [facility] SARS-COV-2 COVID-19 2020-08-28 Completed Unive rsity of PFIZER VACCINE 00:00:00 [facility] SARS-COV-2 COVID-19 2020-08-28 Completed Unive rsity of PFIZER VACCINE 00:00:00 [facility] SARS-COV-2 COVID-19 2020-08-28 Completed Unive rsity of PFIZER VACCINE 00:00:00 [facility] SARS-COV-2 COVID-19 2020-08-28 Completed Unive rsity of PFIZER VACCINE 00:00:00 [facility] SARS-COV-2 COVID-19 2020-08-28 Completed Unive rsity of PFIZER VACCINE 00:00:00 [facility] SARS-COV-2 COVID-19 2020-07-31 Completed Unive rsity of PFIZER VACCINE 00:00:00 [facility] SARS-COV-2 COVID-19 2020-07-31 Completed Unive rsity of PFIZER VACCINE 00:00:00 [facility] SARS-COV-2 COVID-19 2020-07-31 Completed Unive rsity of PFIZER VACCINE 00:00:00 [facility] SARS-COV-2 COVID-19 2020-07-31 Completed Unive rsity of PFIZER VACCINE 00:00:00 [facility] SARS-COV-2 COVID-19 2020-07-31 Completed Unive rsity of PFIZER VACCINE 00:00:00 [facility] SARS-COV-2 COVID-19 2020-07-31 Completed Unive rsity of PFIZER VACCINE 00:00:00 [facility] Vital Signs Vital Name Observation Time Observation Value Comments Source Systolic blood 2022-09-01 04:00:00 139 mm[Hg] Univer sity of pressure [facility] Diastolic blood 2022-09-01 04:00:00 76 mm[Hg] Unive rsity of pressure [facility] Heart rate 2022-09-01 04:00:00 76 /min [facility]i ty [facility] [place] [facility] Respiratory rate 2022-09-01 04:00:00 18 /min Univ ersity of [place] [facility] Oxygen saturation in 2022-09-01 04:00:00 94 /min University of Arterial blood by [facility] Pulse oximetry Branch Body temperature 2022-09-01 01:22:00 38.22 Savana Univ [facility] [place] [facility] Body height 2022-09-01 01:22:00 160 cm [facility]i ty [facility] [place] [facility] Body weight 2022-09-01 01:22:00 81.647 kg [facility] [place] [facility] BMI 2022-09-01 01:22:00 31.89 kg/m2 [facility] [place] [facility] Systolic blood 2022-06-21 22:00:00 133 mm[Hg] Univer sity of pressure [place] [facility] Diastolic blood 2022-06-21 22:00:00 75 mm[Hg] Unive rsity of pressure [place] [facility] Heart rate 2022-06-21 22:00:00 77 /min [facility]i [facility] [place] [facility] Respiratory rate 2022-06-21 22:00:00 18 /min Univ ers[facility] [place] [facility] Oxygen saturation in 2022-06-21 22:00:00 97 /min University of Arterial blood by [facility] Pulse oximetry Branch Body temperature 2022-06-21 20:50:00 37.39 [place] [facility] [place] [facility] Body height 2022-06-21 20:50:00 160 cm [facility] [place] [facility] Body weight 2022-06-21 20:50:00 81.647 kg [facility] [place] [facility] BMI 2022-06-21 20:50:00 31.89 kg/m2 [facility] [place] [facility] Systolic blood 2022-03-12 20:09:00 147 mm[Hg] Univer sity of pressure [place] [facility] Diastolic blood 2022-03-12 20:09:00 81 mm[Hg] Unive rsity of pressure [place] [facility] Heart rate 2022-03-12 20:09:00 70 /min [facility] [place] [facility] Body temperature 2022-03-12 20:09:00 37.33 [place] [facility] [place] [facility] Respiratory rate 2022-03-12 20:09:00 18 /min Univ [facility] [place] [facility] Body height 2022-03-12 20:09:00 160 cm Universi [facility] Body weight 2022-03-12 20:09:00 82.101 kg [facility] BMI 2022-03-12 20:09:00 32.06 kg/m2 [facility] Oxygen saturation in 2022-03-12 20:09:00 97 /min University of Arterial blood by [facility] Pulse oximetry Branch Systolic blood 2021-07-22 15:22:00 138 mm[facility]Hg[facility] 2021-07-22 15:22:00 68 mm[Hg] Unive [facility] Heart rate 2021-07-22 15:22:00 52 /min [facility] Body height 2021-07-22 15:22:00 160 cm [facility] Body weight 2021-07-22 15:22:00 83.462 kg [facility] BMI 2021-07-22 15:22:00 32.59 kg/m2 [facility] Oxygen saturation in 2021-07-22 15:22:00 98 /min [facility] Arterial blood by [facility] Pulse oximetry [place] Procedures Procedure Date / Time Performed Performing Clinician Sour e EKG-12 LEAD 2022-09-01 03:38:22 Carmen Cartagena [facility] CT ABDOMEN PELVIS W 2022-09-01 03:04:42 Carmen Cartagena [facility] CONTRAST [facility] LIPASE 2022-09-01 01:55:00 Carmen Cartagena [facility] TROPONIN I 2022-09-01 01:55:00 Carmen Cartagena [facility] COMP. METABOLIC PANEL 2022-09-01 01:55:00 Carmen Cartagena [facility] ([id number]) [facility] CBC WITH DIFF 2022-09-01 01:55:00 Carmen Cartagena [facility] URINALYSIS 2022-09-01 01:55:00 Carmen Cartagena [facility] NOTICE OF PRIVACY 2022-09-01 00:54:10 Doctor Unassigned, No Univ [facility] [place] PRACTICES Name Medical Branch CONSENT/REFUSAL FOR 2022-09-01 00:53:19 Doctor Unassigned, No [facility] [place] DIAGNOSIS AND Name Medical Branch TREATMENT LIPASE 2022-06-21 21:16:00 [facility] Branch MAGNESIUM 2022-06-21 21:16:00 Singer [facility] TROPONIN I 2022-06-21 21:16:00 Singer [facility] COMP. METABOLIC PANEL 2022-06-21 21:16:00 Robbie Kellogg [facility] ([id number]) Medical Branch CBC WITH DIFF 2022-06-21 21:16:00 Singer [facility] RAPID INFLUENZA A/B 2022-06-21 21:16:00 Singer [facility] [place] [facility] N-TERMINAL PRO-BNP 2022-06-21 21:16:00 Robbie Kellogg [facility] COVID-19 (ID NOW RAPID 2022-06-21 21:16:00 Robbie Kellogg [facility] TESTING) Medical Branch XR CHEST 1 VW 2022-06-21 21:06:51 Singer [facility] CONSENT/REFUSAL FOR 2022-06-21 20:40:53 Doctor Unassigned, No [facility] [place] DIAGNOSIS AND Name Medical Branch TREATMENT COVID-19 (ID NOW RAPID 2022-03-12 20:12:00 Karmen Cavanaugh [facility] [place] TESTING) Medical Branch CONSENT/REFUSAL FOR 2022-03-12 19:59:50 Doctor Unassigned, No [facility] [place] DIAGNOSIS AND Name Medical Branch TREATMENT EXTERNAL PROVIDER 2021-08-13 06:01:00 Doctor Unassigned, No Univ [facility] [place] RECORDS Name Medical Branch Encounters Start End Encounter Admission Attending Care Care Encounter Source Date/Time Date/Time Type Type Clinicians Facility Department ID 2021-05-01 Emergency X [facility] [id number] Univers 07:03:56 ity of [facility] 2022-08-31 2022-08-31 Emergency X OSIEL [facility] ERT [id number] Univers 19:24:00 22:36:00 CARMEN hopkins [facility] 2022-08-31 2022-08-31 [facility] [id number] Univers 19:24:00 22:36:00 Carmen THOMAS [id number] ity of [facility] [id number] [facility] [id number] [address] 2022-06-21 2022-06-21 Emergency X [facility] ERT [id number] Univers 14:56:00 16:25:00 ROBBIE hopkins [facility] 2022-06-21 2022-06-21 Emergency [facility] [id number] Univers 14:56:00 16:25:00 Robbie THOMAS [id number] i ty of [place] [id number] [facility] [id number] [address] 2022-03-12 2022-03-12 Emergency [facility] [id number] Univers 15:13:00 16:01:00 ELISABETH hopkins [facility] 2022-03-12 2022-03-12 Emergency [facility] [id number] Univers 15:13:00 16:01:00 Elisabeth THOMAS [id number] i ty of [place] [id number] [facility] [id number] [place] [id number] [place] 2021-08-13 2021-08-13 Orders Doctor CALISTA [id number] Univers 00:00:00 00:00:00 Only Unassigned, VANITA [id number] ity of [place] [facility] [id number] [facility] [id number] [facility] 009 [place] 2021-07-22 2021-07-22 Outpatient R FRANCISCO [facility] [id number] Univers 09:15:00 09:31:03 DWIGHT hopkins [facility] 2021-07-22 2021-07-22 Office Francisco [facility] [id number] Univers 09:15:00 09:31:03 Visit Dwight DONOHUE [id number] it y of [place] 4.2.7.2.686 [place] MIKAELA?BLEA [id number] De steven SCH[address] OFFICE [facility] 2021-07-22 2021-07-22 [facility] [id number] Univers 09:15:00 09:31:03 DWIGHT hopkins [facility] 2021-07-01 2021-07-01 Office [facility] [id number] Univers 08:30:00 11:02:16 Visit Amanda DONOHUE [id number] it y [facility] [id number] [place] MIKAELA?BLEA [id number] De steven [address] OFFICE [facility] 2021-07-01 2021-07-01 Outpatient [facility] [id number] Univers 08:30:00 11:02:16 AMANDA cam [facility] 2021-07-01 2021-07-01 Outpatient [facility] [id number] Univers 08:30:00 08:30:00 AMANDA [facility] 2021-06-22 2021-06-22 Emergency X [facility] ERT [id number] Univers 16:05:00 18:34:00 RAIMN [facility] 2021-06-22 2021-06-22 Emergency [facility] [id number] Univers 16:05:00 18:34:00 Ramin THOMAS [id number] i ty of [place] [id number] [place] [facility] [id number] [facility] 084 [place] 2021-06-22 2021-06-22 Emergency X [facility] ERT [id number] Univers 16:05:00 18:34:00 RAMIN hopkins [facility] 2020-11-09 2020-11-09 Orders Doctor GRIGSBY [id number] Univers 00:00:00 00:00:00 Only Unassigned, VANITA [id number] ity of [place] [facility] [id number] [place] [id number] [facility] 009 Branch 2020-10-26 2020-10-26 Transition Andres Phan [id number] Univers 00:00:00 00:00:00 of Care Mayank Haywood [id number] ity of [id number] [place] [id number] [facility] 403 Branch 2020-10-19 2020-10-23 Inpatient X VIJAKJOANN [facility] [id number] Univers 19:53:00 12:39:00 THEODORE ity [facility] 2020-10-19 2020-10-23 [facility] Robbie Kellogg [facility] [id number] Univers 19:53:00 12:39:00 Encounter Sharlene [facility] [id number] ity of [id number] [place] [id number] [facility] 114 Branch (CLC) 2020-08-28 2020-08-28 Outpatient Viky NEWMAN [facility] [id number] Univers 10:20:00 08:02:11 SHAHRAZD [facility] 2020-08-21 2020-08-21 Outpatient Viky NEWMAN [facility] [id number] Univers 10:20:00 10:20:00 SHAHRZAD [facility] 2020-07-31 2020-07-31 Outpatient Viky NEWMAN [facility] [id number] Univers 12:50:00 13:20:57 SHAHRZAD [facility] 2020-07-22 2020-07-22 Emergency X LE [facility] ERT [id number] Univers 17:47:00 20:34:00 ELISABETH [facility] 2020-07-22 2020-07-22 [facility] [id number] Univers 17:47:00 20:34:00 Elisabeth S Rosemary 350.1.13.10 i ty of [place] [id number] [facility] [id number] [address] 2020-05-23 2020-05-23 Emergency [facility] [id number] [facility] 12:04:00 14:13:00 Jacy Thomas [id number] ity [facility] [id number] [facility] [id number] [address] Results Test Description Test Time Test Comments Results Result Comments Source TROPONIN I 2022-09-01 02:39:00 Test Item Value Reference Range Interpretation Comme nts TROPONIN I (test code = 0481410716) 0.014 ng/mL <=0.034 PADMA (test code = PADMA) Reference (Normal) Range (defined by the 99th percentile reference limit): <= 0.034 ng/mL Note: Cardiac troponin begins to rise 3-4 hours after the onset of ischemia. Repeat in 4-6 hours if the sample was drawn within 3-4 hours of the onset of the symptom and found normal. Diagnosis of myocardial injury is made with acute changes in cTn concentrations with at least one serial sample above the 99th percentile upper reference limit (URL), taken together with the patient's clinical presentation. Biotin has been reported to cause a negative bias, interpret results relative to patient's use of biotin. Lab Interpretation (test code = Normal 96898-0) [facility]. METABOLIC PANEL (60798)2022-09-01 02:27:21 Test Item Value Reference Range Interpretation Comments NA (test code = 139 mmol/L 135-145 1611475112) K (test code = 3.6 mmol/L 3.5-5.0 0620154891) CL (test code = 107 mmol/L 98-108 2951446017) CO2 TOTAL (test code = 22 mmol/L 23-31 L 9183922978) AGAP (test code = 10 2-16 6126361471) BUN (test code = 20 mg/dL 7-23 7124894470) GLUCOSE (test code = 126 mg/dL 70-110 H [id number]) CREATININE (test code = 1.18 mg/dL 0.50-1.04 H 5803248024) TOTAL BILI (test code = 0.8 mg/dL 0.1-1.4 2601435125) CALCIUM (test code = 8.9 mg/dL 8.6-10.6 [id number]) T PROTEIN (test code = 6.9 g/dL 6.3-8.2 6842946094) ALBUMIN (test code = 4.1 g/dL 3.5-5.0 7396668809) ALK PHOS (test code = 68 U/L 34-122 2276822928) ALTv (test code = 35 U/L 5-35 1742-6) AST(SGOT) (test code = 65 U/L 13-40 H 5318906119) eGFR (test code = 45.6 mL/min/1.73m2 7063990227) PADMA (test code = PADMA) Association of Glomerular Filtration Rate (GFR) and Staging of Kidney Disease* + --+ --+ ------+| GFR (mL/min/1.73 m2) ?| With Kidney Damage ?| ?Without Kidney Damage+ --------+ --------+ +| ?>90 ?| ?Stage one ?| ? Normal ?+ ---+ ---+ -------+| ?60-89 ?| ?Stage two ?| ? Decreased GFR ? + --+ --+ ------+| ?30-59 ?| ?Stage three ?| ? Stage three ? + --+ --+ ------+| ?15-29 ?| ?Stage four ? | ? Stage four ?+ ---+ ---+ -------+| ?<15 (or dialysis) ? ?| ?Stage five ? | ? Stage five ?+ ---+ ---+ -------+ *Each stage assumes the associated GFR level has been in effect for at least three months. ?Stages 1 to 5, with or without kidney disease, indicate chronic kidney disease. Notes: Determination of stages one and two (with eGFR >59mL/min/1.73 m2) requires estimation of kidney damage for at least three months as defined by structural or functional abnormalities of the kidney, manifested by either:Pathological abnormalities or Markers of kidney damage (including abnormalities in the composition of the blood or urine or abnormalities in imaging tests). Lab Interpretation Abnormal (test code = 87346-7) [facility] Test Item Value Reference Range Interpretation Comments LIPASE (test code = 2058003058) 153 U/L 0-220 Lab Interpretation (test code = Normal 43576-8) [facility] WITH [id number] 02:11:16 Test Item Value Reference Range Interpretation Comments WBC (test code = 12.48 See_Comment H [Automated 6690-2) message] The system which generated this result transmit drew reference range : 4.30 - 11.10 10*3/?L. The reference range was not used to interpret this result as normal/abnormal . RBC (test code = 4.22 See_Comment [Automated 789-8) message] The system which generated this result transmit drew reference range : 3.93 - 5.25 10*6/?L. The reference range was not used to interpret this result as normal/abnormal . HGB (test code = 13.1 g/dL 11.6-15.0 718-7) HCT (test code = 37.6 % 35.7-45.2 4544-3) MCV (test code = 89.1 fL 80.6-95.5 787-2) MCH (test code = 31.0 pg 25.9-32.8 785-6) MCHC (test code = 34.8 g/dL 31.6-35.1 786-4) RDW-SD (test code = 44.0 fL 39.0-49.9 24085-7) RDW-CV (test code = 13.5 % 12.0-15.5 788-0) PLT (test code = 302 See_Comment [Automated 777-3) message] The system which generated this result transmit drew reference range : 166 - 358 10*3/ ?L. The reference range was not u sed to interpret th is result as normal/abnormal . MPV (test code = 9.7 fL 9.5-12.9 43178-7) NRBC/100 WBC (test 0.0 See_Comment [Automat ed code = 3292143108) message] The system which generated this result transmit drew reference range : 0.0 - 10.0 /100 WBCs. The reference range was not used to interpret this result as normal/abnormal . NRBC x10^3 (test code See_Comment [Auto mated = 2346410562) message] The system which generated this result transmit drew reference range : 10*3/?L. The reference range was not used to interpret this result as normal/abnormal . GRAN MAT (NEUT) % 88.4 % (test code = 770-8) IMM GRAN % (test code 0.70 % = 4414589252) LYMPH % (test code = 3.9 % 736-9) MONO % (test code = 6.3 % 5905-5) EOS % (test code = 0.3 % 713-8) BASO % (test code = 0.4 % 706-2) GRAN MAT x10^3(ANC) 11.03 10*3/uL 1.88-7.09 H (test code = 4512222487) IMM GRAN x10^3 (test 0.09 10*3/uL 0.00-0.06 H code = 1026200848) LYMPH x10^3 (test code 0.49 10*3/uL 1.32-3.29 L = 731-0) MONO x10^3 (test code 0.78 10*3/uL 0.33-0.92 = 742-7) EOS x10^3 (test code = 0.04 10*3/uL 0.03-0.39 711-2) BASO x10^3 (test code 0.05 10*3/uL 0.01-0.07 = 704-7) Lab Interpretation Abnormal (test code = 22674-9) [facility] [id number] 22:19:06 Test Item Value Reference Interpretation Comments Range TROPONIN I (test 0.005 ng/mL See_Comment [Automated code = 7421814576) message] The system which generated this result transmitted reference range : <=0.034. The reference range was not used to interpret this result as normal/abnormal . PADMA (test code = Reference (Normal) PADMA) Range (defined by the 99th percentile reference limit): <= 0.034 ng/mL Note: Cardiac troponin begins to rise 3-4 hours after the onset of ischemia. Repeat in 4-6 hours if the sample was drawn within 3-4 hours of the onset of the symptom and found normal. Diagnosis of myocardial injury is made with acute changes in cTn concentrations with at least one serial sample above the 99th percentile upper reference limit (URL), taken together with the patient's clinical presentation. Biotin has been reported to cause a negative bias, interpret results relative to patient's use of biotin. Lab Interpretation Normal (test code = 40077-6) [facility] [id number] 22:15:27 Test Item Value Reference Range Interpretation Comments NT-proBNP (test code 370 pg/mL See_Comment H [Autom ated = 5567423591) message] The system which generated this result transmitted reference range : <=125. The reference range was not used to interpret this result as normal/abnormal . PADMA (test code = PADMA) Biotin has been reported to cause a negative bias, interpret results relative to patient's use of biotin. Lab Interpretation Abnormal (test code = 88710-7) [facility]2022-[facility] 22:06:44 Test Item Value Reference Range Interpretation Comments MAGNESIUM (test code = 1629111107) 1.8 mg/dL 1.7-2.4 Lab Interpretation (test code = Normal 05155-2) [facility] METABOLIC PANEL ([id number])2022-06-21 22:06:27 Test Item Value Reference Range Interpretation Comments NA (test code = 139 mmol/L 135-145 2299188598) K (test code = 4.0 mmol/L 3.5-5.0 2963194848) CL (test code = 106 mmol/L 98-108 1884981122) CO2 TOTAL (test code = 26 mmol/L 23-31 3853306629) AGAP (test code = 2-16 8220643217) BUN (test code = 21 mg/dL 7-23 5334094241) GLUCOSE (test code = 106 mg/dL 70-110 0840989251) CREATININE (test code = 0.95 mg/dL 0.50-1.04 9338447482) TOTAL BILI (test code = 0.6 mg/dL 0.1-1.8 0272684576) CALCIUM (test code = 8.9 mg/dL 8.6-10.6 1793354684) T PROTEIN (test code = 7.1 g/dL 6.3-8.2 6480442216) ALBUMIN (test code = 4.5 g/dL 3.5-5.0 3919384336) ALK PHOS (test code = 68 U/L 34-122 6699356130) ALTv (test code = 29 U/L 5-35 1742-6) AST(SGOT) (test code = 41 U/L 13-40 H 7059351708) eGFR (test code = mL/min/1.73m2 1016162829) PADMA (test code = PADMA) Association of Glomerular Filtration Rate (GFR) and Staging of Kidney Disease* + --+ --+ ------+| GFR (mL/min/1.73 m2) ?| With Kidney Damage ?| ?Without Kidney Damage+ --------+ --------+ +| ?>90 ?| ?Stage one ?| ? Normal ?+ ---+ ---+ -------+| ?60-89 ?| ?Stage two ?| ? Decreased GFR ? + --+ --+ ------+| ?30-59 ?| ?Stage three ?| ? Stage three ? + --+ --+ ------+| ?15-29 ?| ?Stage four ? | ? Stage four ?+ ---+ ---+ -------+| ?<15 (or dialysis) ? ?| ?Stage five ? | ? Stage five ?+ ---+ ---+ -------+ *Each stage assumes the associated GFR level has been in effect for at least three months. ?Stages 1 to 5, with or without kidney disease, indicate chronic kidney disease. Notes: Determination of stages one and two (with eGFR >59mL/min/1.73 m2) requires estimation of kidney damage for at least three months as defined by structural or functional abnormalities of the kidney, manifested by either:Pathological abnormalities or Markers of kidney damage (including abnormalities in the composition of the blood or urine or abnormalities in imaging tests). Lab Interpretation Abnormal (test code = 58014-2) [facility] 22:06:07 Test Item Value Reference Range Interpretation Comments LIPASE (test code = 2956241866) 178 U/L 0-220 Lab Interpretation (test code = Normal 34825-1) [facility]CBC WITH [id number] 21:37:18 Test Item Value Reference Range Interpretation Comments WBC (test code = See_Comment [Automated 6690-2) message] The sy stem which generated this result transmitted reference range : 4.30 - 11.10 10*3/?L. The reference range was not used to interpret this result as normal/abnormal . RBC (test code = See_Comment [Automated 789-8) message] The sy stem which generated this result transmitted reference range : 3.93 - 5.25 10*6/?L. The reference range was not used to interpret this result as normal/abnormal . HGB (test code = 13.8 g/dL 11.6-15.0 718-7) HCT (test code = 40.2 % 35.7-45.2 4544-3) MCV (test code = 89.3 fL 80.6-95.5 787-2) MCH (test code = 30.7 pg 25.9-32.8 785-6) MCHC (test code = 34.3 g/dL 31.6-35.1 786-4) RDW-SD (test code = 42.9 fL 39.0-49.9 72556-9) RDW-CV (test code = 13.1 % 12.0-15.5 788-0) PLT (test code = See_Comment [Automated 777-3) message] The sy stem which generated this result transmitted reference range : 166 - 358 10*3/ ?L. The reference r darrel was not used to interpret this result as normal/abnormal . MPV (test code = 9.8 fL 9.5-12.9 93480-5) NRBC/100 WBC (test See_Comment [Automat ed code = 7644626599) message] The system which generated this result transmitted reference range : 0.0 - 10.0 /100 WBCs. The refer ence range was not u sed to interpret th is result as normal/abnormal . NRBC x10^3 (test code See_Comment [Auto mated = 7487556461) message] The s ystem which generated this result transmitted reference range : 10*3/?L. The reference range was not used to interpret this result as normal/abnormal . GRAN MAT (NEUT) % 77.8 % (test code = 770-8) IMM GRAN % (test code 0.70 % = 9215091387) LYMPH % (test code = 9.7 % 736-9) MONO % (test code = 9.3 % 5905-5) EOS % (test code = 1.5 % 713-8) BASO % (test code = 1.0 % 706-2) GRAN MAT x10^3(ANC) 6.24 10*3/uL 1.88-7.09 (test code = 5137352495) IMM GRAN x10^3 (test 0.06 10*3/uL 0.00-0.06 code = 9914779442) LYMPH x10^3 (test code 0.78 10*3/uL 1.32-3.29 L = 731-0) MONO x10^3 (test code 0.75 10*3/uL 0.33-0.92 = 742-7) EOS x10^3 (test code = 0.12 10*3/uL 0.03-0.39 711-2) BASO x10^3 (test code 0.08 10*3/uL 0.01-0.07 H = 704-7) Lab Interpretation Abnormal (test code = 73369-7) [facility]"
[2022-09-08] MEDS ORDERED: MORPHINE 4 MG/ML SYR ONE ×2 (10:31→13:14)
[2022-09-08] MEDS ORDERED: ONDANSETRON 4 MG (ODT) TAB ONE (10:32)
--- NOTE | 2022-09-08 11:01 | RAD REPORT ---
EXAM DESCRIPTION: CT - Abdomen Pelvis Wo Contrast - 09/08/2022 10:37 am CLINICAL HISTORY: Midback and posterior rib pain s/p fall COMPARISON: CT ABD PELVIS W CONTRAST dated 12/09/2012; CT-STONE PROTOCOL dated 10/31/2010; CT ABD PELVIS W WO CONTRAST dated 10/01/2010 TECHNIQUE: Thin cut axial CT imaging of the abdomen and pelvis was performed without IV contrast. Mu ltiplanar reformats were generated and reviewed. All CT scans are performed using dose optimization technique as appropriate and may include automated exposure control or mA/KV adjustment according to patient size. FINDINGS: No suspicious findings in the lung bases. The liver demonstrates diffuse parenchymal hypoattenuation suggesting steatosis. No evidence of focal hepatic lesions. The gallbladder is surgically removed. The spleen, adrenal glands, and pancreas show no suspicious findings. Mild prominence of the extrahepatic common bile duct, probably relates to post cholecystectomy status . This is not significantly changed. Symmetric renal contour, without suspicious parenchymal findings within limits of noncontrast techniq ue. No evidence of radiopaque calculi or hydroureteronephrosis. No dilated bowel loops or bowel wall thickening. Colonic diverticulosis. No free air, free fluid or i nflammatory stranding. No hernia, mass or bulky lymphadenopathy. The urinary bladder is without signi ficant finding. No suspicious bony findings. Superior endplate compression deformities at T10, T11, and L1 all, of in determinate age. IMPRESSION: No acute intra-abdominal process. Diffuse parenchymal hypoattenuation suggesting steatosis. Superior endplate compression deformities at T10, T11, and L1, of indeterminate age. Please correlate with focal symptoms. Other incidental findings as above.
[2022-09-08] MEDS ORDERED: KETOROLAC 30 MG/ML INJ ONE (13:14)
[2022-09-08] MEDS ORDERED: LIDOCAINE 4% PATCH ONE (13:14)
--- NOTE | 2022-09-23 15:22 | ER ---
Nurse's Notes [facility] Name: Merry Henderson Age: 67 yrs Sex: Female : 1955 Arrival Date: 09/08/2022 Time: 10:03 Bed DX3 Private MD: Yayo Garcia E Diagnosis: Compression fracture T10, T11, L1;Fall on same level, unspecified;Superior endplate compression fracture T10, T11, and L1 Presentation: 09/08 10:24 Chief complaint: Low back pain after mechanical fall from standing 2 days ago. hb Coronavirus screen: At this time, the client does not indicate any symptoms associated with coronavirus-19. Ebola Screen: No symptoms or risks identified at this time. Initial Sepsis Screen: Does the patient meet any 2 criteria? No. Patient's initial sepsis screen is negative. Does the patient have a suspected source of infection? No. Patient's initial sepsis screen is negative. Risk Assessment: Do you want to hurt yourself or someone else? Patient reports no desire to harm self or others. Onset of symptoms was September 06, 2022. 10:24 Method Of Arrival: Wheelchair hb 10:24 Acuity: KRYSTYNA 4 hb Historical: - Allergies: 10:25 No Known Allergies; hb - PMHx: 10:25 Hyperlipidemia; acid reflux; hb - PSHx: 10:25 section; hb Vital Signs: 10:24 BP 156 / 68; Pulse 59; Resp 16; Temp 98.3; Pulse Ox 100% on R/A; Weight 83.91 kg; hb Height 5 ft. 3 in. ; Pain 10/10; 10:24 Body Mass Index 32.77 (83.91 kg, 160.02 cm) hb 10:24 Pain Scale: Adult hb ED Course: 10:03 Patient arrived in ED. am2 10:03 Yayo Garcia MD is Private Physician. am2 10:13 Abdirahman Valencia NP is PHCP. pm1 10:13 Az Chen MD is Attending Physician. pm1 10:25 Triage completed. hb 10:39 CT Abd/Pelvis - Without Contrast In Process Unspecified. EDMS 13:03 Skinny Avendano, MIKE is Primary Nurse. jl7 14:00 No provider procedures requiring assistance completed. Patient did not have IV access jl7 during this emergency room visit. Administered Medications: 10:30 Drug: morphine IM 4 mg Route: IM; Site: left deltoid; hb 11:00 Follow up: Response: No adverse reaction; Pain is unchanged, physician notified jl7 10:30 Drug: Ondansetron PO 4 mg Route: PO; hb 13:59 Follow up: Response: No adverse reaction jl7 13:18 Drug: Ketorolac IM 15 mg Route: IM; Site: right deltoid; jl7 13:58 Follow up: Response: Medication administered at discharge. jl7 13:19 Drug: morphine IM 4 mg Route: IM; Site: left deltoid; jl7 13:59 Follow up: Response: Medication administered at discharge. jl7 13:19 Drug: Lidoderm Topical Patch 5 % (700 mg/patch) 1 patches Route: Topical; Site: jl7 affected area; 13:58 Follow up: Response: Medication administered at discharge. jl7 Medication: 13:58 VIS not applicable for this client. jl7 Outcome: 13:28 Discharge ordered by MD. pm1 14:00 Discharged to home via wheelchair, with family. jl7 14:00 Condition: stable 14:00 Discharge instructions given to patient, Instructed on discharge instructions, follow up and referral plans. medication usage, Demonstrated understanding of instructions, follow-up care, medications, Prescriptions given X 2. 14:08 Patient left the ED. jl7 Signatures: Dispatcher [employer] EDMS Abdirahman Valencia NP COMMUNICATIONS PROGRAM MANAGER pm1 Daniela Lr RN RN Skinny Hutchins RN RN jl7 Shae Henderson am2
--- NOTE | 2022-09-23 15:22 | EDPHYS ---
Physician Documentation [facility] Name: Merry Henderson Age: 67 yrs Sex: Female : 1955 Arrival Date: 09/08/2022 Time: 10:03 Bed DX3 Private MD: Yayo Garcia E ED Physician Az Chen HPI: 09/08 11:07 This 67 yrs old Female presents to ER via Wheelchair with complaints of Fall pm1 Injury, Back Pain. 11:07 Details of fall: The patient fell from an upright position, while standing, and struck pm1 a carpeted surface. Onset: The symptoms/episode began/occurred 2 day(s) ago. Associated injuries: The patient sustained upper back injury, pain. Severity of symptoms: in the emergency department the symptoms are unchanged. The patient has not experienced similar symptoms in the past. The patient has not recently seen a physician. 67-year-old female presenting to the ER with complaints of mid-back pain after falling backwards. she tripped on her vacuum and landed on her back on the vacuum. Patient did not hit her head. Negative for headache, neck pain, LOC. Patient without hip pain. Patient is able to walk without any difficulty. Historical: - Allergies: 10:25 No Known Allergies; hb - PMHx: 10:25 Hyperlipidemia; acid reflux; hb - PSHx: 10:25 section; hb ROS: 11:07 Constitutional: Negative for fever, chills, and weight loss, Cardiovascular: Negative pm1 for chest pain, palpitations, and edema, Respiratory: Negative for shortness of breath, cough, wheezing, and pleuritic chest pain. 11:07 : Negative for injury, bleeding, discharge, and swelling, and incontience MS/Extremity: Negative for injury and deformity, Skin: Negative for injury, rash, and discoloration, Neuro: Negative for headache, weakness, numbness, tingling, and seizure. 11:07 Back: Positive for of the lower thoracic area back pain with rib pain adjacent to the area, Negative for decreased range of motion, radiated pain. 11:07 All other systems are negative. pm1 Exam: 11:07 Constitutional: This is a well developed, well nourished patient who is awake, alert, pm1 and in no acute distress. Head/Face: Normocephalic, atraumatic. 11:07 Skin: Warm, dry with normal turgor. Normal color with no rashes, no lesions, and no evidence of cellulitis. MS/ Extremity: Pulses equal, no cyanosis. Neurovascular intact. Full, normal range of motion. 11:07 Cardiovascular: Exam negative for acute changes, Rate: normal, Rhythm: regular, Pulses: no pulse deficits are appreciated. 11:07 Respiratory: Exam negative for acute changes, respiratory distress, shortness of breath. 11:07 Back: vertebral tenderness, is appreciated at T10, T11 and T12. 11:07 Neuro: Exam negative for acute changes, Orientation: is normal, Mentation: is normal, Motor: is normal, moves all fours. Vital Signs: 10:24 BP 156 / 68; Pulse 59; Resp 16; Temp 98.3; Pulse Ox 100% on R/A; Weight 83.91 kg; hb Height 5 ft. 3 in. ; Pain 10/10; 10:24 Body Mass Index 32.77 (83.91 kg, 160.02 cm) hb 10:24 Pain Scale: Adult hb MDM: 10:42 Patient medically screened. pm1 13:24 Data reviewed: vital signs. pm1 13:24 Counseling: I had a detailed discussion with the patient and/or guardian regarding: the pm1 historical points, exam findings, and any diagnostic results supporting the discharge/admit diagnosis, radiology results, the need for outpatient follow up, a family practitioner, a neurosurgeon, to return to the emergency department if symptoms worsen or persist or if there are any questions or concerns that arise at home. 09/08 10:22 Order name: CT Abd/Pelvis - Without Contrast; Complete Time: 11:07 pm1 Administered Medications: 10:30 Drug: morphine IM 4 mg Route: IM; Site: left deltoid; hb 11:00 Follow up: Response: No adverse reaction; Pain is unchanged, physician notified jl7 10:30 Drug: Ondansetron PO 4 mg Route: PO; hb 13:59 Follow up: Response: No adverse reaction jl7 13:18 Drug: Ketorolac IM 15 mg Route: IM; Site: right deltoid; jl7 13:58 Follow up: Response: Medication administered at discharge. jl7 13:19 Drug: morphine IM 4 mg Route: IM; Site: left deltoid; jl7 13:59 Follow up: Response: Medication administered at discharge. jl7 13:19 Drug: Lidoderm Topical Patch 5 % (700 mg/patch) 1 patches Route: Topical; Site: jl7 affected area; 13:58 Follow up: Response: Medication administered at discharge. jl7 Disposition: 15:26 Co-signature as Attending Physician, Az Chen MD I reviewed the patient's care rn provided by the Advanced Practice Provider and agree with the diagnosis and treatment plan. Disposition Summary: 09/08/22 13:28 Discharge Ordered Location: Home pm1 Problem: new pm1 Symptoms: have improved pm1 Condition: Stable pm1 Diagnosis - Compression fracture T10, T11, L1 pm1 - Fall on same level, unspecified pm1 - Superior endplate compression fracture T10, T11, and L1 pm1 Followup: pm1 - With: Emergency Department - When: As needed - Reason: Worsening of condition Followup: pm1 - With: Private Physician - When: 2 - 3 days - Reason: Recheck today's complaints, Continuance of care, Re-evaluation by your physician Discharge Instructions: - Discharge Summary Sheet pm1 - Spinal Compression Fracture pm1 Forms: - Medication Reconciliation Form pm1 - Thank You Letter pm1 - Antibiotic Education pm1 - Prescription Opioid Use pm1 - Work release form eb Prescriptions: - Lidoderm 5 % Topical adhesive patch, medicated - apply 1 patch by TOPICAL route daily As needed 12 hrs on and 12 hours off in a pm1 24 hour period; 30 patch; Refills: 0, Product Selection Permitted - acetaminophen-codeine 300-30 mg Oral tablet - take 2 tablet by ORAL route every 6 hours As needed; 20 tablet; Refills: 0, pm1 Product Selection Permitted Signatures: Dispatcher [employer] EDAz Christensen MD MD rn Marinas, Patrick, NP ENVIRONMENTAL COMPLIANCE ENGINEER pm1 Daniela Lr RN Skinny Nielsen RN RN jl7
== END 2022-09-08 14:08 | disposition home or self-care (01) ==
LOC: ER 09:58
DX: S22.079A Unspecified fracture of T9-T10 vertebra, initial encounter for closed fracture (principal); S22.089A Unspecified fracture of T11-T12 vertebra, initial encounter for closed fracture; S32.019A Unspecified fracture of first lumbar vertebra, initial encounter for closed fracture; W18.30XA Fall on same level, unspecified, initial encounter
CPT/HCPCS: 74176; 96372; 99283; Q0162; J2001